=== PATIENT | male | born 1960 | race Native Hawaiian/Other Pacific Islander ===

== ENCOUNTER 2018-09-01 17:53 | Emergency (ER) | payer SELFPAY ==
[2018-09-01] MEDS ORDERED: PEPCID IV ONE (18:02)
[2018-09-01] MEDS ORDERED: BENADRYL IV ONE (18:02)
[2018-09-01] MEDS ORDERED: SOLU-Medrol IV ONE (18:02)
[2018-09-01] MEDS ORDERED: NACL 0.9% 1000 ML 1,000 ML IV ONE (18:02)
--- NOTE | 2018-09-01 18:06 | Emergency Department Report ---
ED Allergic Reaction HPI - General Stated complaint: ALLERGIC REACTION TO SEAFOOD Time Seen by Provider: 09/01/18 17:59 - History of Present Illness Initial Comments: Patient is 57 years old male with no significant past medical history. Patient presented to the ER complaining of tongue swelling and generalized rash was itching started this afternoon after he ate shrimp. Patient denied any history of allergy before. Patient denied any difficulty swallowing or difficulty breathing. MD Complaint: allergic reaction, hives, facial swelling -: Gradual, This afternoon Exposure: food Symptoms: rash, itching, facial swelling, orolingual swelling Severity: moderate Treatment Prior to Arrival: none Previous Allergy History: none - Related Data Allergies Allergy/AdvReac Type Severity Reaction Status Date / Time No Known Allergies Allergy Verified 09/01/18 18:06 ED Review of Systems ROS: Stated complaint: ALLERGIC REACTION TO SEAFOOD Other details as noted in HPI Comment: All other systems reviewed and negative Constitutional: denies: chills, fever ENT: denies: throat pain Respiratory: denies: cough, orthopnea, shortness of breath, SOB with exertion, SOB at rest Cardiovascular: denies: chest pain, palpitations, dyspnea on exertion, orthopnea Gastrointestinal: denies: abdominal pain, nausea, vomiting, diarrhea, constipation, hematemesis, melena, hematochezia Musculoskeletal: denies: back pain Neurological: denies: headache, weakness, numbness, paresthesias, confusion, abnormal gait ED Physical Exam - General Limitations: No Limitations General appearance: alert, in no apparent distress - Head Head exam: Present: atraumatic, normocephalic, normal inspection - Eye Eye exam: Present: normal appearance - ENT ENT exam: Present: mucous membranes moist, other (tongue is slightly swollen. No airway compromise) - Neck Neck exam: Present: normal inspection, full ROM. Absent: tenderness, meningismus, lymphadenopathy, thyromegaly - Respiratory Respiratory exam: Present: normal lung sounds bilaterally. Absent: respiratory distress, wheezes, rales, rhonchi, stridor, chest wall tenderness, accessory muscle use, decreased breath sounds, prolonged expiratory - Cardiovascular Cardiovascular Exam: Present: regular rate, normal rhythm, normal heart sounds - GI/Abdominal GI/Abdominal exam: Present: soft, normal bowel sounds. Absent: distended, tenderness, guarding, rebound, rigid, organomegaly, mass, bruit, pulsatile mass, hernia - Extremities Exam Extremities exam: Present: normal inspection, full ROM, normal capillary refill. Absent: pedal edema, calf tenderness - Back Exam Back exam: Present: normal inspection, full ROM. Absent: tenderness, CVA tenderness (R), CVA tenderness (L), muscle spasm, paraspinal tenderness, vert ebral tenderness - Neurological Exam Neurological exam: Present: alert, oriented X3, CN II-XII intact, normal gait, reflexes normal - Skin Skin exam: Present: warm, dry, rash ED Course Vital Signs 09/01/18 09/01/18 09/01/18 17:53 18:01 18:15 Temperature 97 F L Pulse Rate 97 H 91 H 78 Respiratory 18 18 14 Rate Blood Pressure 149/94 140/94 Blood Pressure [Left] O2 Sat by Pulse 99 99 99 Oximetry 09/01/18 09/01/18 09/01/18 18:30 18:45 18:59 Temperature Pulse Rate 81 76 Respiratory 13 17 18 Rate Blood Pressure 139/96 135/92 Blood Pressure [Left] O2 Sat by Pulse 98 99 99 Oximetry 09/01/18 09/01/18 09/01/18 19:00 19:34 19:39 Temperature Pulse Rate 72 68 Respiratory 14 16 Rate Blood Pressure 136/88 136/88 Blood Pressure 136/88 [Left] O2 Sat by Pulse 97 99 98 Oximetry 09/01/18 09/01/18 09/01/18 19:45 20:00 20:15 Temperature Pulse Rate 68 63 85 Respiratory 14 12 20 Rate Blood Pressure 127/85 115/82 136/101 Blood Pressure [Left] O2 Sat by Pulse 99 99 98 Oximetry 09/01/18 09/01/18 09/01/18 20:30 20:45 21:00 Temperature Pulse Rate 63 62 66 Respiratory 12 11 L 11 L Rate Blood Pressure 118/83 118/79 116/82 Blood Pressure [Left] O2 Sat by Pulse 98 98 97 Oximetry 09/01/18 09/01/18 09/01/18 21:15 21:30 21:45 Temperature Pulse Rate 64 62 68 Respiratory 10 L 11 L 16 Rate Blood Pressure 120/79 117/79 118/80 Blood Pressure [Left] O2 Sat by Pulse 97 97 98 Oximetry 09/01/18 09/01/18 09/01/18 22:00 22:15 22:30 Temperature Pulse Rate 63 65 66 Respiratory 12 15 24 Rate Blood Pressure 118/78 108/75 112/78 Blood Pressure [Left] O2 Sat by Pulse 98 97 97 Oximetry - Reevaluation(s) Reevaluation #1: 09/01/18 22:47 Patient evaluated by me several times. Patient stated that he feels much better and he is ready to go home. ED Medical Decision Making - Lab Data Result diagrams: 09/01/18 18:15 09/01/18 18:15 - Medical Decision Making Patient is 57 years old male with no significant past medical history. Patient presented to the ER complaining of tongue swelling and generalized rash was itching started this afternoon after he ate shrimp. Patient denied any history of allergy before. Patient denied any difficulty swallowing or difficulty breathing. Patient he stated that he feel much better. Tongue is swollen is completely resolved. Patient observed in the ER for approximately 5 hours. I advised patient to follow up with his primary care physician the next 2-3 days and to return to the ER if his symptoms get worse. Critical Care Time: Yes Critical care time in (mins) excluding proc time.: 30 Critical care attestation.: If time is entered above; I have spent that time in minutes in the direct care of this critically ill patient, excluding procedure time. ED Disposition Clinical Impression: Allergic reaction, Tongue swelling Disposition: DC-01 TO HOME OR SELFCARE Is pt being admited?: No Condition: Stable Instructions: Angioedema (ED) Referrals: PRIMARY CARE,MD [Primary Care Provider] - 3-5 Days
[2018-09-01 18:26] LABS: Basophils % (Auto) 0.5 % (0.0-1.8); Eosinophils # (Auto) 0.3 K/mm3 (0.0-0.4); Eosinophils % (Auto) 5.5 % (0.0-4.3); Hematocrit 41.3 % (35.5-45.6); Hemoglobin 14.2 gm/dl (11.8-15.2); Lymphocytes # (Auto) 1.7 K/mm3 (1.2-5.4); Lymphocytes % (Auto) 26.8 % (13.4-35.0); Mean Corpuscular HGB Conc 34 % (32-34); Mean Corpuscular Volume 83 fl (84-94); Monocytes # (Auto) 0.5 K/mm3 (0.0-0.8); Monocytes % (Auto) 7.2 % (0.0-7.3); Platelet Count 218 K/mm3 (140-440); Red Blood Count 4.97 M/mm3 (3.65-5.03); Red Cell Distribution Width 13.6 % (13.2-15.2)
[2018-09-01 18:57] LABS: Alanine Aminotransferase 21 units/L (7-56); Albumin 4.3 g/dL (3.9-5); BUN/Creatinine Ratio 13; Blood Urea Nitrogen 12 mg/dL (9-20); Calcium 9.3 mg/dL (8.4-10.2); Hemolysis Index 6
[2018-09-01 22:43] VITALS: BP 112/78
== END 2018-09-01 23:30 | disposition home or self-care (01) ==
LOC: ED 17:53
DX: T78.40XA Allergy, unspecified, initial encounter (principal); X58.XXXA Exposure to other specified factors, initial encounter
CPT/HCPCS: 36415; 80053; 85025; 96374; 96375; 99291; J1200; J2930; J7030